=== PATIENT | male | born 1980 | race Caucasian/White ===

== ENCOUNTER 2017-05-14 17:11 | Inpatient (IN) | payer MEDICARE, MEDICAID ==
[~2017-05-14] VITALS: Ht 172.7 cm; Wt 63.2 kg
[2017-05-14] MEDS ORDERED: FAMOTIDINE 20 MG/2 ML IVP ONE (17:30)
[2017-05-14] MEDS ORDERED: MORPHINE SULFATE 4 MG/ML, 1ML IVPush PRN (17:30)
[2017-05-14] MEDS ORDERED: SODIUM CHLORIDE 0.9% 1,000ML IVBOLUS ONE (17:30)
[2017-05-14] MEDS ORDERED: ONDANSETRON 2MG/ML, 2ML IVPush ONE (17:30)
[2017-05-14] MEDS ORDERED: SODIUM CHLORIDE FLUSH 10ML SYR IVF ONE (17:30)
[2017-05-14 18:12] LABS: BLOOD UREA NITROGEN 12 mg/dL (7-18)
[2017-05-14 18:14] LABS: ASPARTATE AMINO TRANSFERASE 36 U/L (15-37)
[2017-05-14] MEDS ORDERED: MORPHINE SULFATE 4 MG/ML, 1ML ONE (18:30)
[2017-05-14] MEDS ORDERED: ONDANSETRON 2MG/ML, 2ML ONE ×2 (18:30→22:07)
[2017-05-14] MEDS ORDERED: FAMOTIDINE 20 MG/2 ML ONE (18:31)
[2017-05-14] MEDS ORDERED: CARI350T PO (18:43)
[2017-05-14 18:58] LABS: HEMATOCRIT 45.9 % (39.2-51.8); HEMOGLOBIN 15.3 g/dL (13.7-18.0); WHITE BLOOD COUNT 16.7 x10^3/uL (3.4-10)
[2017-05-14] MEDS ORDERED: DICYCLOMINE 10 MG/ML, 2ML IM ONE (19:00)
[2017-05-14] MEDS ORDERED: DICYCLOMINE 20 MG TABLET PO ONE (19:30)
[2017-05-14] MEDS ORDERED: morphine SULFATE 10 MG/ML, 1ML IVPush ONE (20:30)
[2017-05-14] MEDS ORDERED: OMNIPAQUE 350 MG/ML, 100ML BOTTLE ONE (21:10)
[2017-05-14] MEDS ORDERED: D5%-0.45% NACL 1,000 ML IV ONE (21:55)
[2017-05-14] MEDS ORDERED: ONDANSETRON 2MG/ML, 2ML IVPush PRN (22:00)
[2017-05-14] MEDS ORDERED: CEFOTETAN PMX 1GM/50ML 50 ML IV ONE (22:00)
[2017-05-14] MEDS ORDERED: SODIUM CHLORIDE FLUSH 10ML SYR IVF PRN (22:00)
[2017-05-14] MEDS ORDERED: HYDROmorphone 1 MG/ML, 1ML ONE ×2 (22:07)
[2017-05-14] MEDS ORDERED: CEFOTETAN PMX 1GM/50ML 50 ML ONE (22:07)
[2017-05-14] MEDS: HYDROmorphone 1 MG/ML, 1ML IVPush PRN ×2 (22:23→23:56)
[2017-05-14 23:29] VITALS: BP 120/67
[2017-05-14 23:43] VITALS: BP 120/67
[2017-05-15 02:16] VITALS: BP 136/67
[2017-05-15] MEDS ORDERED: BUPIVACAINE/PF 0.5% ONE (02:18)
[2017-05-15] MEDS ORDERED: MIDAZOLAM 1 MG/ML, 2ML ONE (05:23)
[2017-05-15] MEDS ORDERED: FENTANYL PF 100 MCG/2ML ONE ×3 (05:23→06:39)
[2017-05-15] MEDS ORDERED: ROCURONIUM 10 MG/ML ONE (05:47)
[2017-05-15] MEDS ORDERED: PROPOFOL 10 MG/ML, 20ML ONE (05:47)
[2017-05-15] MEDS ORDERED: CEFOTETAN 2 GM ONE (05:47)
[2017-05-15] MEDS ORDERED: HYDROmorphone 1 MG/ML, 1ML IV PRN (06:00)
[2017-05-15] MEDS ORDERED: ONDANSETRON 2MG/ML, 2ML IVPush PRN ×2 (06:00→10:00)
[2017-05-15] MEDS ORDERED: PROMETHAZINE 25 MG/ML, 1ML IV PRN (06:00)
[2017-05-15] MEDS ORDERED: OXYcodone 5 MG/5 ML ORAL.SOL UDC PO PRN (06:00)
[2017-05-15] MEDS ORDERED: ACETAMINOPHEN 325 MG TABLET PO PRN (06:00)
[2017-05-15] MEDS ORDERED: BUPIVACAINE/PF 0.5% INJ ONE (06:07)
[2017-05-15] MEDS ORDERED: MEPERIDINE/PF 50 MG/ML ONE (06:39)
[2017-05-15] MEDS: FENTANYL PF 100 MCG/2ML IV PRN ×2 (06:40→06:46)
[2017-05-15] MEDS ORDERED: MEPERIDINE/PF 25MG/0.5ML IVPush PRN (07:00)
[2017-05-15] MEDS ORDERED: OXYcodone 5 MG/5 ML ORAL.SOL UDC ONE (07:06)
[2017-05-15 08:00] VITALS: BP 167/87
[2017-05-15 08:45] VITALS: BP 163/73
[2017-05-15] MEDS ORDERED: morphine SULFATE 10 MG/ML, 1ML IVPush PRN (09:30)
[2017-05-15] MEDS ORDERED: LORazepam 1MG TABLET PO PRN (09:30)
[2017-05-15] MEDS ORDERED: LORazepam 2 MG/ML, 1ML IVPush PRN (09:30)
[2017-05-15] MEDS ORDERED: LORazepam 2 MG/ML, 1ML ONE (09:44)
[2017-05-15] MEDS ORDERED: HYDROcodone/APAP 5/325 TABLET PO PRN (10:00)
[2017-05-15] MEDS ORDERED: D5%-0.45NACL+KCL 20MEQ 1,000 ML IV SCH (10:00)
[2017-05-15] MEDS ORDERED: ENOXAPARIN 40 MG/0.4 ML SQ SCH (10:00)
[2017-05-15] MEDS: HYDROmorphone 1 MG/ML, 1ML IV PRN ×2 (10:17→10:32)
[2017-05-15] MEDS: OXYcodone/APAP 5/325MG TABLET PO PRN ×2 (11:26→11:29)
[2017-05-15 12:48] VITALS: BP 146/87
[2017-05-15] MEDS ORDERED: OXYC-302 PO (13:42)
[2017-05-15 14:44] VITALS: BP 139/85
== END 2017-05-15 15:01 | disposition home or self-care (01) | DRG 418 ==
LOC: ED 21:44 → EDIP 21:49 → ED 22:07 → 4NOR 23:18
PROVIDERS: ADMIT Surgery; ATTEND Surgery
PROC: 0FT44ZZ Resection of Gallbladder, Percutaneous Endoscopic Approach (ICD-10-PCS; principal; 2017-05-15 05:00)
DX: K80.00 Calculus of gallbladder with acute cholecystitis without obstruction (principal); K92.1 Melena; G89.4 Chronic pain syndrome; M19.90 Unspecified osteoarthritis, unspecified site; Z88.0 Allergy status to penicillin
CPT/HCPCS: 36415; 74177; 76700; 80053; 81003; 83690; 85025; 88304; 96361; 96365; 96375; 96376; J1170; J2175; J2250; J2405; J2704; J3010; J3490; Q9967; C1760; J2060; J2270; J3480; J7030; S0028; S0074